=== PATIENT | male | born 1965 | race Caucasian/White ===

== ENCOUNTER 2018-07-02 04:31 | Emergency (ER) | payer BC, MEDICAID ==
[~2018-07-02] VITALS: Ht 195.6 cm; Wt 99.8 kg
[2018-07-02 04:34] VITALS: BP 154/88
== END 2018-07-02 05:34 | disposition home or self-care (01) ==
LOC: ER 04:35
DX: Z02.83 Encounter for blood-alcohol and blood-drug test (principal)
CPT/HCPCS: 36415; G0480

== ENCOUNTER 2018-09-05 03:41 | Emergency (ER) | payer BC, OTHER ==
[~2018-09-05] VITALS: Ht 195.6 cm; Wt 99.8 kg
[2018-09-05 03:55] VITALS: BP 135/91
== END 2018-09-05 05:12 | disposition home or self-care (01) ==
LOC: ER 03:42
DX: Z02.89 Encounter for other administrative examinations (principal)
CPT/HCPCS: 36415; 80305; G0480